=== PATIENT | female | born 1990 | race Caucasian/White ===

== ENCOUNTER 2017-12-21 18:03 | Emergency (ER) | payer OTHER, MEDICAID ==
[~2017-12-21 18:03] MED LIST: METR0.7512 VAGINAL
[2017-12-21 18:04] VITALS: BP 137/64; PULSE 86; RESP 16; TEMP 98.2; O2SAT 100
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
[2017-12-21 22:19] VITALS: BP 128/66
== END 2017-12-21 22:36 | disposition home or self-care (01) ==
LOC: NEPD 18:03
DX: S80.01XA Contusion of right knee, initial encounter (principal); V43.52XA Car driver injured in collision with other type car in traffic accident, initial encounter
CPT/HCPCS: 73564; 99283

== ENCOUNTER 2018-01-05 12:09 | Emergency (ER) | payer MEDICAID ==
[~2018-01-05] VITALS: Ht 152.4 cm; Wt 50.0 kg
[2018-01-05 12:10] VITALS: BP 144/68; PULSE 76; RESP 16; TEMP 98.2; O2SAT 97
[2018-01-05] MEDS ORDERED: ACETAMINOPHEN/HYDROcodone 325 MG/5 MG TAB PO ONE (13:45)
[2018-01-05] MEDS ORDERED: LIDOCAINE HCL 4% TOPICAL SOLN 50 ML BTL TOPICAL ONE (13:45)
[2018-01-05] MEDS ORDERED: COLA100C5 PO (14:00)
[2018-01-05] MEDS ORDERED: LIDO4CRE5 RECTAL (14:00)
[2018-01-05] MEDS ORDERED: NORC5TAB PO (14:00)
--- NOTE | 2018-01-05 14:00 | PD ---
HPI Chief Complaint: GI Complaint Time Seen by Provider: 13:23 Travel History International Travel<30 days: No Contact w/Intl Traveler<30days: No Traveled to known affect area: No History of Present Illness HPI Patient is a 27 year old female who comes in complaining of a painful hemorrhoid. She says she has been having issues with hemorrhoids ever since giving to her daughter. She says that this particular hemorrhoid has gotten larger in the past day and is causing her significant pain. She has tried sitz baths and [id number] treatments without relief. She says she has had issues with nausea and vomiting her entire life, this is not changed. She denies fever chills. There is no active bleeding. Severity is mild to moderate. PFSH Past Medical History Cancer: Yes (CERVICAL) Cardiovascular Problems: No Endocrine: No Genitourinary: No Hepatitis: No Hiatal Hernia: No Immune Disorder: No Musculoskeletal: No Neurologic: No Psychiatric: Yes (ANXIETY, PAST HX PANIC ATTACK) Reproductive: No Respiratory: No ?: Not LMP: 01/02/2018 : 1 Para: 1 Past Surgical History Abdominal Surgery: No Body Medical Devices: NONE Cardiac Surgery: No Ear Surgery: No Endocrine Surgery: No Eye Surgery: No Genitourinary Surgery: No Gynecologic Surgery: Yes () Oral Surgery: No Thoracic Surgery: No Other Surgery: Yes Social History Alcohol Use: Yes (OCCASIONALLY) Tobacco Use: No Substance Use: Yes (MARIJUANA) Allergies-Medications (Allergen,Severity, Reaction): Coded Allergies: No Known Allergies (Unverified , 07/14/17) Reported Meds & Prescriptions Reported Meds & Active Scripts Active Metronidazole Vaginal Gel 0.75 % Gel 1 Appl VAGINAL HS Review of Systems Except as stated in HPI: all other systems reviewed are Neg General / Constitutional: No: Fever, Chills HENT: No: Headaches Cardiovascular: No: Chest Pain or Discomfort Respiratory: No: Shortness of Breath Gastrointestinal: Positive: Nausea, Vomiting Musculoskeletal: No: Myalgias Skin: No Rash, No Change in Pigmentation Physical Exam Narrative GENERAL: Awake and alert, no acute distress. SKIN: Focused skin assessment warm/dry. No wounds or signs of infection. HEAD: Atraumatic. Normocephalic. EYES: Pupils equal and round. No scleral icterus. ENT: Mucous membranes pink and moist. NECK: Trachea midline. No JVD. CARDIOVASCULAR: Regular rate and rhythm. No murmur appreciated. RESPIRATORY: No accessory muscle use. Clear to auscultation. Breath sounds equal bilaterally. Rectal: Large hemorrhoid present, soft to the touch. No active bleeding. MUSCULOSKELETAL: No obvious deformities. No clubbing. No cyanosis. No edema. NEUROLOGICAL: Awake and alert. No obvious cranial nerve deficits. Motor grossly within normal limits. Normal speech. PSYCHIATRIC: Appropriate mood and affect; insight and judgment normal. Data Data Last Documented VS Vital Signs Date Time Temp Pulse Resp B/P (MAP) Pulse Ox O2 Delivery O2 Flow Rate FiO2 01/05/18 13:40 16 01/05/18 12:10 98.2 76 144/68 (93) 97 Room Air Orders Orders Acetamin-Hydrocod 325-5 Mg ([place] 5-325 (01/05/18 13:45) Lidocaine 4% Top Soln (Xylocaine 4% Top (01/05/18 13:45) MDM Medical Decision Making Medical Screen Exam Complete: Yes Emergency Medical Condition: Yes Medical Record Reviewed: Yes Differential Diagnosis External hemorrhoid versus internal hemorrhoid versus GI bleed Narrative Course Patient is a 27-year-old female who comes in complaining of a painful hemorrhoid. Exam shows a large, soft hemorrhoid to the touch. She is given topical lidocaine for symptom relief as well as pain medication. She will be discharged with prescriptions for Colace, lidocaine, pain medication to take for severe pain. Advised follow-up with gastroenterology as well as colorectal surgery. Advised return anytime for any worsening symptoms. Diagnosis Primary Impression: External hemorrhoid Referrals: Ramez Goldstein MD call for appointment Montserrat Nielson MD call for appointment Patient Instructions: General Instructions, Hemorrhoids (ED) Additional Instructions: Apply lidocaine for pain relief. you can take a pain pill, but be careful as they may cause constipation, which can worsen hemorrhoids. Follow-up with gastroenterology as well as colorectal surgery. Continue with sits baths. Return as needed for any worsening symptoms. Scripts Docusate Sodium (Colace) 100 Mg Capsule 100 MG PO HS for Prevent Constipation, #30 CAP 0 Refills Prov: Shea Mendez MD 01/05/18 Hydrocodone-Acetaminophen ([place]) 5 Mg-325 Mg Tab 1 TAB PO Q6H Y for PAIN, #10 TAB 0 Refills Prov: Shea Mendez MD 01/05/18 Lidocaine Rectal (Lidocaine Rectal) 5 % Cream 1 APPLIC RECTAL DAILY Y for PAIN, #1 TUBE 0 Refills Prov: Shea Mendez MD 01/05/18 Disposition: 01 DISCHARGE HOME Condition: Stable Shea Mendez MD Jan 05, 2018 14:00
== END 2018-01-05 14:39 | disposition home or self-care (01) ==
LOC: NEPD 12:09
DX: K64.4 Residual hemorrhoidal skin tags (principal); R11.2 Nausea with vomiting, unspecified
CPT/HCPCS: 99283

== ENCOUNTER 2018-04-02 14:19 | Emergency (ER) | END 2018-04-02 23:43 | disposition home or self-care (01) | DX: K21.0 Gastro-esophageal reflux disease with esophagitis (principal); F12.90 Cannabis use, unspecified, uncomplicated | CPT/HCPCS: 74177; 80053; 81001; 83605; 83690; 84703; 85025; 85610; 85730; 96361; 96374; 96375; 99284; C9113; J1885; J7030; Q9967 ==